=== PATIENT | female | born 1985 | race Caucasian/White ===

== ENCOUNTER 2023-02-03 18:48 | Emergency (ER) | payer MEDICAID ==
[~2023-02-03] VITALS: Ht 165.1 cm; Wt 64.0 kg
[~2023-02-03 18:48] MED LIST: PENI500T2 PO
[2023-02-03 21:21] VITALS: BP 125/75
== END 2023-02-03 21:23 | disposition home or self-care (01) ==
LOC: ER 18:49
DX: R10.11 Right upper quadrant pain (principal); Z88.1 Allergy status to other antibiotic agents
CPT/HCPCS: 76700; 99284; J7030